=== PATIENT | female | born 1995 | race African-American/Black ===

== ENCOUNTER 2021-11-26 18:10 | Emergency (ER) | payer OTHER ==
[~2021-11-26] VITALS: Ht 170.2 cm; Wt 68.0 kg
[2021-11-26] MEDS ORDERED: SODIUM CHLORIDE 0.9% 1,000 ML IV ONE (19:15)
[2021-11-26] MEDS ORDERED: ACETAMINOPHEN 325MG TABLET PO ONE (19:30)
[2021-11-26 20:01] LABS: HEMATOCRIT. 37.9 % (36.0-48.0); HEMOGLOBIN. 12.9 g/dL (12.0-16.0); MEAN CORPUSCULAR HEMOGLOBIN 25.7 pg (28.0-32.0); MEAN CORPUSCULAR VOLUME 75.5 fL (81.0-99.0); MEAN PLATELET VOLUME 9.3 fl (7.4-10.4); PLATELET 234 x1000/uL (130-400); RED BLOOD CELL COUNT 5.03 mill/uL (4.2-5.4); RED CELL DISTRIBUTION WIDTH 15.1 % (11.6-14.6)
[2021-11-26 20:07] LABS: CHLORIDE 104 mEq/L (98-107)
[2021-11-26] MEDS ORDERED: SODIUM CHLORIDE 0.9% 1000ML BAG (SEPSIS BOLUS) IV ONE (20:45)
[2021-11-26] MEDS ORDERED: PIPERACILLIN/TAZ 3.375G PREMIX 50 ML IV NR (21:00)
[2021-11-26 21:46] LABS: PLATELET ESTIMATE NORMAL
[2021-11-26] MEDS ORDERED: ONDANSETRON HCL 4MG/2ML INJ IV ONE (22:00)
[2021-11-26 23:00] VITALS: BP 112/68
[2021-11-27 00:01] LABS: CLARITY URINE CLOUDY (CLEAR); COLOR URINE YELLOW (YELLOW); KETONES URINE 3+ (NEGATIVE); LEUKOCYTE ESTERASE URINE TRACE (NEGATIVE); NITRITE URINE NEGATIVE (NEGATIVE); OCCULT BLOOD URINE NEGATIVE (NEGATIVE); PH URINE 5.5 (4.5-8.0); PROTEIN URINE NEGATIVE (NEGATIVE); SPECIFIC GRAVITY URINE 1.014 (1.005-1.030); UROBILINOGEN URINE 0.2 E.U./dL (0.2-1.0)
== END 2021-11-27 00:13 | disposition short-term general hospital (02) ==
LOC: ER 18:10 → CANBEDREQ 11-27 09:11
DX: O98.511 Other viral diseases complicating pregnancy, first trimester (principal); U07.1 COVID-19; R65.20 Severe sepsis without septic shock; Z3A.13 13 weeks gestation of pregnancy
CPT/HCPCS: 36415; 80053; 81003; 83605; 84145; 84484; 84702; 85025; 87040; 87086; 87426; 87804; 93005; 96361; 96374; 99291; J2405; J7030